=== PATIENT | male | born 1970 | race Caucasian/White ===

== ENCOUNTER → 2024-11-04 | Outpatient (CLI) | payer OTHER ==
[~2024-11-04] MED LIST: ASPIR 8181 M1 PO; BIKTARVY 50-201 EAC1 PO; MOTRIN IB200 MG PO; OMEP20ER PO; Prinivil10 MG PO
== END ==
LOC: LAB 12:56 → LAB SHORT 12:56
DX: N39.0 Urinary tract infection, site not specified (principal)
CPT/HCPCS: 87077; 87086; 87186